=== PATIENT | male | born 1965 | race Hispanic/Latino ===

== ENCOUNTER → 2024-08-31 | Day surgery (SDC) | payer BC, OTHER ==
[2024-08-30 10:53] LABS: HEMATOCRIT 42.6 % (38.2-49.6); HEMOGLOBIN 14.1 g/dL (14.0-18.0)
[2024-08-30 11:38] LABS: ANION GAP 14.4 mmol/L (8-16); CALCIUM 9.3 mg/dL (8.4-10.2); CREATININE, SERUM 0.87 mg/dL (0.72-1.25); POTASSIUM 4.4 mmol/L (3.5-5.1)
[~2024-08-31] MED LIST: LIDOCAINE HCL 2% LOCAL INJ 5 ML SDV VIAL INJ ONE; OMEGA 3-6-9 CO400 MG PO; ONDANSETRON HCL INJ 2MG/ML 2ML 2 MG/ML VIAL ONE; PROPOFOL IV EMULSION 10 MG/ML 20 ML VIAL ONE; VIT D PO; ZEGERID PO
[2024-08-31] MEDS: CYCLOPENTOLATE HCL 2% OPTH SOLN 2 ML BTL OP ONE (08:39)
[2024-08-31] MEDS: PHENYLEPHRINE HCL 2 ML DROPS ONE (08:39)
[2024-08-31] MEDS: GATIFLOXACIN(OPTH) 5 ML LIQD ONE (08:39)
[2024-08-31] MEDS: LACTATED RINGER'S 1,000 ML ONE (08:39)
[2024-08-31 09:55] VITALS: TEMP 97.5
[2024-08-31 10:10] VITALS: BP 160/89; PULSE 60; RESP 16; O2SAT 98
== END | disposition home or self-care (01) ==
LOC: OR 06:43
PROVIDERS: ATTEND Ophthalmology
DX: H25.12 Age-related nuclear cataract, left eye (principal); Z01.810 Encounter for preprocedural cardiovascular examination; Z01.812 Encounter for preprocedural laboratory examination
CPT/HCPCS: 36415; 66984; 80048; 85014; 85018; 93005; J2003; J2405; J2704; J7121; V2632